=== PATIENT | female | born 1990 | race Hispanic/Latino ===

== ENCOUNTER 2021-01-24 19:48 | Emergency (ER) | payer SELFPAY ==
[~2021-01-24] VITALS: Ht 154.9 cm; Wt 81.6 kg
== END 2021-01-24 22:05 | disposition home or self-care (01) ==
LOC: FSED 19:56
DX: O03.9 Complete or unspecified spontaneous abortion without complication (principal)
CPT/HCPCS: 76801; 81025; 99283